=== PATIENT | male | born 1960 | race Caucasian/White ===

== ENCOUNTER → 2020-06-09 09:47 | Outpatient (CLI) | payer OTHER, BC, SELFPAY ==
--- NOTE | ~2020-06-09 | MR_ITS ---
EXAMINATION: MR lumbar spine wo [facility] EXAM DATE: 06/09/2020 10:38 INDICATION: Low back pain. Left hip pain, left leg numbness. TECHNIQUE: Multi-sequential, multiplanar MR images of the lumbar spine were obtained without contrast . Sagittal T1, T2, T2 fat saturation images. Axial T2 weighted images. There is no prior study for comparison. FINDINGS: There is moderate to severe disc disease L2-L5, moderate at L5-S1. The L1 and L2 vertebral bodies are fused with mild kyphosis. There is 4 mm retrolisthesis L2 on L3, 2 mm anterolisthesis L3 o n L4, 2 mm retrolisthesis L4 on L5, 5 mm retrolisthesis L5 on S1. Moderate loss of the lower thoracic disc height. The conus medullaris terminates at the L1/2 level and has normal signal intensity and m orphology. Paraspinal soft tissue is unremarkable. Level by level evaluation: T12-L1: There is a mild diffuse disc bulge. Facet arthropathy: Mild. Neural foraminal stenosis: No stenosis. Central canal stenosis: No stenosis. L1-L2: There is osseous fusion of these vertebral bodies. Posterior aspect does bulge into spinal can al. Facet arthropathy: Moderate. Neural foraminal stenosis: Mild to moderate right, mild left. Central canal stenosis: Mild. L2-L3: There is a moderate to large diffuse disc bulge, small superimposed left central extrusion azeem rowing lateral recess. Facet arthropathy: Moderate to severe . Ligamentum flavum enlargement. Neural foraminal stenosis: Moderate left, mild to moderate right. Central canal stenosis: Mild to moderate overall, but particularly left lateral recess. L3-L4: There is a moderate to large diffuse disc bulge. Facet arthropathy: Severe . Ligamentum flavum enlargement. Neural foraminal stenosis: Moderate bilateral. Central canal stenosis: Severe. L4-L5: There is a moderate to large diffuse disc bulge. Facet arthropathy: Moderate . Ligamentum flavum enlargement . Neural foraminal stenosis: Moderate to severe bilateral. Central canal stenosis: Moderate to severe. L5-S1: There is a mild to moderate diffuse disc bulge. Facet arthropathy: Moderate. Neural foraminal stenosis: Moderate to severe bilateral, but less than level above. Central canal stenosis: Moderate. IMPRESSION: Advanced lumbar spondylosis with L4-5 neural foramen most narrowed and L3-4 central canal most narrowed. Reviewed, dictated and finalized at location A.
== END ==
PROVIDERS: PCP Internal Medicine; Visit Provider Internal Medicine
DX: M47.815 Spondylosis without myelopathy or radiculopathy, thoracolumbar region (principal); M48.05 Spinal stenosis, thoracolumbar region; M47.817 Spondylosis without myelopathy or radiculopathy, lumbosacral region; M48.07 Spinal stenosis, lumbosacral region
CPT/HCPCS: 72148

== ENCOUNTER → 2020-09-24 08:38 | Outpatient (CLI) | payer OTHER, BC, SELFPAY ==
--- NOTE | ~2020-09-24 | XR_ITS ---
EXAMINATION: XR chest 2V EXAM DATE: 09/24/2020 09:17 INDICATION: Preoperative. Spinal stenosis, radiculopathy. TECHNIQUE: Frontal and lateral projections of the chest obtained and reviewed. Comparison is made to prior examination from 03/17/2017. FINDINGS: The lungs are hyperinflated which can be seen with chronic obstructive pulmonary disease ( a clinical diagnosis of functional impairment), but is not diagnostic of it. The lungs are clear. Th ere are no pleural effusions. The cardiomediastinal silhouette is within normal limits. There is no pneumothorax suspected. The bones and soft tissues are unremarkable. IMPRESSION: 1. No acute cardiopulmonary findings. 2. Hyperinflation. Reviewed, dictated and finalized at location B.
== END ==
PROVIDERS: Visit Provider Neurological Surgery
DX: M54.17 Radiculopathy, lumbosacral region (principal); M48.07 Spinal stenosis, lumbosacral region; M54.16 Radiculopathy, lumbar region; R91.8 Other nonspecific abnormal finding of lung field
CPT/HCPCS: 71046

== ENCOUNTER 2020-09-24 09:38 | Outpatient (CLI) | payer OTHER, BC, SELFPAY ==
--- NOTE | 2020-09-24 | ECG_ITS ---
Measurements Intervals [place] Rate: 65 P: 81 [place]: 171 QRS: 70 QRSD: 86 T: 61 QT: 389 QTc: 405 Interpretive Statements SINUS RHYTHM NORMAL ECG Electronically Signed On 09-24-2020 10:11:19 CDT by Adalberto Brumfield D.O.
== END 2020-09-24 09:39 | disposition home or self-care (01) ==
LOC: ANHCARD 09:42
PROVIDERS: Visit Provider Neurological Surgery
DX: M54.17 Radiculopathy, lumbosacral region (principal); M48.07 Spinal stenosis, lumbosacral region; M54.16 Radiculopathy, lumbar region
CPT/HCPCS: 93005

== ENCOUNTER 2020-12-19 08:56 | Outpatient (CLI) | payer OTHER, BC, SELFPAY ==
--- NOTE | ~2020-12-19 | MR_ITS ---
EXAMINATION: MR lumbar spine wo con DATE: 12/19/2020 09:46 INDICATION: Spinal stenosis. TECHNIQUE: Magnetic resonance imaging (MRI) of the lumbar spine was performed without intravenous con trast. Sequences included sagittal T2-weighted FSE, sagittal T2-weighted FS FSE, sagittal T1-weighted FSE, and axial T2-weighted FSE. COMPARISON: Lumbar spine MRI 06/09/2020 FINDINGS: There is 6 degrees levocurvature of lumbar spine. There is 3 mm retrolisthesis of L1 on L2 and L2 and L3, 3 mm retrolisthesis of L3 on L4, and 3 mm retrolisthesis of L4 on L5 and L5 on S1. The re is mild chronic anterior wedging of T12 vertebral body. There is interbody fusion at L1-L2 with mi ld focal kyphosis. There is severely decreased disc height from L2-L3 through L5-S1 with endplate rem odeling. The distal spinal cord signal intensity is normal. The conus medullaris is at L1-L2. The fol lowing disc levels are specifically discussed: L1-L2: There is moderate bilateral facet joint osteoarthritis. There is moderate right and mild left neural foraminal stenosis. There is mild central canal stenosis. L2-L3: The disc is bulging and has an annular fissure. There is severe bilateral facet joint osteoart hritis. There is mild right and moderate left neural foraminal stenosis. There is mild central canal stenosis with posterior decompression. L3-L4: The disc is bulging and has an annular fissure. There is severe bilateral facet joint osteoart hritis. There is moderate bilateral neural foraminal stenosis. There is mild central canal stenosis w ith posterior decompression. L4-L5: The disc is bulging and has an annular fissure. There is severe bilateral facet joint osteoart hritis. There is moderate bilateral neural foraminal stenosis. There is mild central canal stenosis w ith posterior decompression. L5-S1: The disc is bulging and has an annular fissure. There is severe bilateral facet joint osteoart hritis. There is moderate bilateral neural foraminal stenosis. There is mild central canal stenosis w ith posterior decompression. IMPRESSION: 1. Severe lumbar spondylosis with improvement in central canal stenosis from 06/09/2020. Reviewed, dictated and finalized at location A. IMPRESSION: 1. Severe lumbar spondylosis with improvement in central canal stenosis from .
== END 2020-12-19 08:57 | disposition home or self-care (01) ==
LOC: ANHIMG 08:58
PROVIDERS: PCP Internal Medicine; Visit Provider Neurological Surgery
DX: M48.07 Spinal stenosis, lumbosacral region (principal); G90.09 Other idiopathic peripheral autonomic neuropathy; M47.26 Other spondylosis with radiculopathy, lumbar region
CPT/HCPCS: 72148

== ENCOUNTER 2020-12-24 14:33 | Outpatient (CLI) | payer OTHER, BC, SELFPAY ==
--- NOTE | ~2020-12-24 | MR_ITS ---
EXAMINATION: MR cervical spine wo con DATE: 12/24/2020 16:12 INDICATION: Cervical radiculopathy. TECHNIQUE: Magnetic resonance imaging (MRI) of the cervical spine was performed without intravenous c ontrast. Sequences included sagittal T2-weighted FSE, sagittal T2-weighted FS FSE, sagittal T1-weight ed FSE, axial MERGE, and axial T2-weighted FSE. COMPARISON: None FINDINGS: There is 2 mm retrolisthesis of C5 on C6. There is 2 mm anterolisthesis of C3 on C4. Verteb ral body heights are normal. There is moderately decreased disc height at C5-C6. The spinal cord sign al intensity is normal. The following disc levels are specifically discussed: C2-C3: The disc does not extend beyond the endplate margin. There is mild left uncovertebral joint os teoarthritis. There is severe left facet joint osteoarthritis. There is moderate left neural foramina l stenosis. There is no central canal stenosis. C3-C4: The disc is bulging. There is severe right and moderate left uncovertebral joint osteoarthriti s. There is severe bilateral facet joint osteoarthritis. There is moderate bilateral neural foraminal stenosis. There is mild central canal stenosis. C4-C5: The disc is bulging. There is mild bilateral uncovertebral joint osteoarthritis. There is mode rate bilateral facet joint osteoarthritis. There is mild bilateral neural foraminal stenosis. There i s mild central canal stenosis. C5-C6: The disc is bulging. There is severe bilateral uncovertebral joint osteoarthritis. There is no facet joint osteoarthritis. There is moderate bilateral neural foraminal stenosis. There is moderate central canal stenosis with ventral and dorsal indentation of the spinal cord. C6-C7: The disc is bulging. There is no uncovertebral joint osteoarthritis. There is moderate bilater al facet joint osteoarthritis. There is mild bilateral neural foraminal stenosis. There is mild centr al canal stenosis. C7-T1: The disc does not extend beyond the endplate margin. There is no uncovertebral joint osteoarth ritis. There is moderate and severe left facet joint osteoarthritis. There is mild bilateral neural f oraminal stenosis. There is no central canal stenosis. IMPRESSION: 1. Moderate cervical spondylosis. Reviewed, dictated and finalized at location A.
== END 2020-12-24 14:34 | disposition home or self-care (01) ==
PROVIDERS: PCP Internal Medicine; Visit Provider Neurological Surgery
DX: M47.22 Other spondylosis with radiculopathy, cervical region (principal)
CPT/HCPCS: 72141

== ENCOUNTER 2021-07-03 08:22 | Outpatient (CLI) | payer OTHER, BC, SELFPAY ==
--- NOTE | ~2021-07-03 | MR_ITS ---
EXAMINATION: MR cervical spine wo con DATE: 07/03/2021 09:15 INDICATION: Cervical radiculopathy. TECHNIQUE: Magnetic resonance imaging (MRI) of the cervical spine was performed without intravenous c ontrast. Sequences included sagittal T2-weighted FSE, sagittal T2-weighted FS FSE, sagittal T1-weight ed FSE, axial MERGE, and axial T2-weighted FSE. COMPARISON: Cervical spine MRI 12/24/2020 FINDINGS: There is 2 mm anterolisthesis of C3 on C4 and 2 mm retrolisthesis of C5 on C6. Vertebral danny dy heights are normal. There is moderately decreased disc height at the C5-C6 with endplate remodelin g. The spinal cord signal intensity is normal. The following disc levels are specifically discussed: C2-C3: The disc does not extend beyond the endplate margin. There is mild left uncovertebral joint os teoarthritis. There is mild right and severe left facet joint osteoarthritis. There is mild left neur al foraminal stenosis. There is no central canal stenosis. C3-C4: The disc is bulging. There is severe right and moderate left uncovertebral joint osteoarthriti s. There is severe bilateral facet joint osteoarthritis. There is moderate bilateral neural foraminal stenosis. There is mild central canal stenosis. C4-C5: There is a central protrusion. There is no uncovertebral joint osteoarthritis. There is modera te bilateral facet joint osteoarthritis. There is no neural foraminal stenosis. There is mild central canal stenosis. C5-C6: The disc is bulging. There is severe bilateral uncovertebral joint osteoarthritis. There is mi ld bilateral facet joint osteoarthritis. There is severe right and moderate left neural foraminal nadia nosis. There is mild central canal stenosis. C6-C7: There is a left central protrusion. There is mild left uncovertebral joint osteoarthritis. The re is moderate right and mild left facet joint osteoarthritis. There is no neural foraminal stenosis. There is mild central canal stenosis. C7-T1: The disc does not extend beyond the endplate margin. There is no uncovertebral joint osteoarth ritis. There is severe bilateral facet joint osteoarthritis. There is mild bilateral neural foraminal stenosis. There is no central canal stenosis. IMPRESSION: 1. Moderate cervical spondylosis, stable from 12/24/2020. Reviewed, dictated and finalized at location A.
== END 2021-07-03 08:23 | disposition home or self-care (01) ==
LOC: ANHIMG 08:25
PROVIDERS: PCP Internal Medicine; Visit Provider Neurological Surgery
DX: G90.09 Other idiopathic peripheral autonomic neuropathy (principal); M47.892 Other spondylosis, cervical region
CPT/HCPCS: 72141

== ENCOUNTER 2021-07-12 09:14 | Outpatient (CLI) | payer OTHER, BC, SELFPAY ==
--- NOTE | 2021-07-12 | ECG_ITS ---
Measurements Intervals [place] Rate: 58 P: 88 [place]: 203 QRS: 74 QRSD: 74 T: 73 QT: 414 QTc: 408 Interpretive Statements SINUS BRADYCARDIA OTHERWISE NORMAL ECG COMPARED TO ECG 09/24/2020 10:06:40 SINUS BRADYCARDIA NOW PRESENT Electronically Signed On 07-12-2021 16:23:15 CDT by Barry Cunningham M.D.
--- NOTE | ~2021-07-12 | XR_ITS ---
XR chest 2V DATE: 07/12/2021 09:34 INDICATION: Spinal stenosis TECHNIQUE: PA and lateral views COMPARISON: 09/24/2020 2 view chest FINDINGS: Normal heart size. No hilar or mediastinal enlargement. No hilar or mediastinal enlargeme nt. Bilateral hyperinflation. No pulmonary infiltrate or consolidation, pulmonary vascular congestion or pleural effusion or pneumothorax. IMPRESSION: Bilateral hyperinflation; no active cardiopulmonary disease Reviewed, dictated and finalized at location A.
[2021-07-12 09:49] LABS: Basophils Absolute Auto 0.1 K/mm3 (0.0-0.1); Basophils Percent Auto 0.8 % (0.2-1.2); Eosinophils Absolute Auto 0.2 K/mm3 (0-0.3); Eosinophils Percent Auto 3.2 % (0-4.4); Hematocrit 48.1 % (42.0-52.0); Hemoglobin 15.7 g/dL (14.0-18.0); Immature Granulocyte Absolute 0.01 K/mm3 (0.00-0.031); Immature Granulocyte Percent A 0.2 % (0-0.5); Lymphocytes Absolute Auto 1.61 K/mm3 (0.9-3.2); Mean Corpuscular HGB Conc 32.6 g/dl (32-36); Mean Corpuscular Hemoglobin 30.8 pg (26-34); Mean Corpuscular Volume 94.3 fl (80-100); Mean Platelet Volume 9.5 fl (7.4-10.4); Monocytes Absolute Auto 0.6 K/mm3 (0.1-0.6); Neutrophils Absolute Auto 3.8 K/mm3 (1.3-6.7); Neutrophils Percent Auto 60.8 % (45.5-73.1); Platelet Count Result 214 k/mm3 (150-375); Red Cell Distribution Width 13.2 % (11.5-14.5); White Blood Count 6.2 K/mm3 (4.5-10.0)
[2021-07-12 10:00] LABS: Anion Gap 2 mmol/L (8-16); Blood Urea Nitrogen 16 mg/dL (9-20); Calcium 8.5 mg/dL (8.4-10.2); Carbon Dioxide 31 mmol/L (22-30); Chloride 106 mmol/L (98-107); Estimated Glomerular Filt Rate > 60; Glucose 108 mg/dL (65-110); Potassium 4.1 mmol/L (3.4-5.0); Sodium 139 mmol/L (137-145)
[2021-07-12 10:01] LABS: Partial Thromboplastin Time 28.6 SECONDS (22.3-36.8); Prothrombin Time 12.7 Seconds (11.1-14.7)
== END 2021-07-12 09:15 | disposition home or self-care (01) ==
LOC: ANHIMG 09:19
PROVIDERS: PCP Internal Medicine; Visit Provider Neurological Surgery
DX: M54.17 Radiculopathy, lumbosacral region (principal); M48.07 Spinal stenosis, lumbosacral region; M54.12 Radiculopathy, cervical region; G90.09 Other idiopathic peripheral autonomic neuropathy; M50.222 Other cervical disc displacement at C5-C6 level; M47.12 Other spondylosis with myelopathy, cervical region
CPT/HCPCS: 36415; 71046; 80048; 85025; 85610; 85730; 93005

== ENCOUNTER 2021-10-28 08:08 | Outpatient (CLI) | payer OTHER, BC, SELFPAY ==
--- NOTE | ~2021-10-28 | XR_ITS ---
XR_CERV2-3V_CR DATE: 10/28/2021 08:52 INDICATION: Surgery 41 days ago. Cervical disc displacement at C5-6. TECHNIQUE: AP, lateral, open-mouth views COMPARISON: 07/03/2021 MR cervical spine FINDINGS: C1 and C2 are normally aligned and the odontoid process is intact. Intervertebral disc spacer device at C5-6. There is mild retrolisthesis at C5-6. Cervical interspaces are otherwise well preserved. No fracture or dislocation or locked facet or prevertebral soft tissue swelling is detected. IMPRESSION: Disc space device and mild retrolisthesis at C5-6 Reviewed, dictated and finalized at Location A. Reviewed, dictated and finalized at location B.
== END 2021-10-28 08:09 | disposition home or self-care (01) ==
LOC: ANHIMG 08:18
PROVIDERS: PCP Internal Medicine; Visit Provider Neurological Surgery
DX: M50.20 Other cervical disc displacement, unspecified cervical region (principal)
CPT/HCPCS: 72040

== ENCOUNTER 2022-09-26 16:17 | Outpatient (CLI) | payer OTHER, BC, SELFPAY ==
--- NOTE | ~2022-09-26 | CT_ITS ---
EXAMINATION:CT diagnostic chest wo con DATE: 09/26/2022 16:36 INDICATION: Chest pain. TECHNIQUE: Computed tomography (CT) of the chest was performed without intravenous contrast. Automate d exposure control and iterative reconstruction technique were employed. The dose-length product (DLP ) was 228.10 mGy-cm. COMPARISON: Chest 2 views 07/12/2021 FINDINGS: There is mild scarring at the lung apices. There are tree-in-bud opacities and centrilobula r nodules in the lower lobes and lingula, consistent with pneumonia. There is mild bronchiectasis in the inferior lungs. No pleural effusion. The heart size is normal. No pericardial effusion. There is a small sliding hiatal hernia. There is a 10 mm cyst in the liver. There is severe thoracic spondylos is. IMPRESSION: 1. Bilateral pneumonia. 2. Mild bronchiectasis in the inferior lungs. 3. Small sliding hiatal hernia. Reviewed, dictated and finalized at location E.
== END 2022-09-26 16:18 | disposition home or self-care (01) ==
LOC: ANHIMG 16:18
PROVIDERS: PCP Internal Medicine; Visit Provider Internal Medicine
DX: J18.9 Pneumonia, unspecified organism (principal); K44.9 Diaphragmatic hernia without obstruction or gangrene
CPT/HCPCS: 71250

== ENCOUNTER 2023-06-17 19:08 | Emergency (ER) | payer OTHER, BC, SELFPAY ==
--- NOTE | ~2023-06-17 | XR_ITS ---
XR chest 1V portable DATE: 06/18/2023 00:49 INDICATION: Cough, difficulty breathing TECHNIQUE: Portable AP chest radiographs on at 0040 at 0041 hours COMPARISON: 09/26/2022 CT chest 07/12/2021 2 view chest FINDINGS: Bilateral hyperinflation. No pulmonary infiltrate or consolidation, pleural effusion or pul monary vascular congestion or pneumothorax. Normal heart size. No hilar or mediastinal enlargement. IMPRESSION: Bilateral hyperinflation; no active cardiopulmonary disease Reviewed, dictated and finalized at location A.
[2023-06-17 19:11] VITALS: BP 149/88; PULSE 78; RESP 18; TEMP 36.8; O2SAT 100
--- NOTE | 2023-06-17 19:24 | ECG_ITS ---
Measurements Intervals [place] Rate: 72 P: 84 [place]: [id number] QRS: 76 QRSD: 86 T: 68 QT: 383 QTc: 422 Interpretive Statements SINUS RHYTHM POSSIBLE LEFT ATRIAL ENLARGEMENT BORDERLINE ECG COMPARED TO ECG 07/12/2021 10:08:50 SINUS RHYTHM NOW PRESENT Electronically Signed On 06-17-2023 21:12:19 CDT by Adalberto Brumfield D.O.
[2023-06-17 20:06] LABS: Basophils Percent Auto 0.4 % (0.2-1.2); Eosinophils Absolute Auto 0.1 K/mm3 (0-0.3); Eosinophils Percent Auto 1.1 % (0-4.4); Hematocrit 51.5 % (42.0-52.0); Hemoglobin 17.3 g/dL (14.0-18.0); Immature Granulocyte Absolute 0.03 K/mm3 (0.00-0.031); Immature Granulocyte Percent A 0.4 % (0-0.5); Lymphocytes Absolute Auto 0.48 K/mm3 (0.9-3.2); Lymphocytes Percent Auto 5.8 % (18.3-44.2); Mean Corpuscular HGB Conc 33.6 g/dl (32-36); Mean Corpuscular Hemoglobin 32.1 pg (26-34); Mean Corpuscular Volume 95.5 fl (80-100); Mean Platelet Volume 9.7 fl (7.4-10.4); Monocytes Absolute Auto 0.5 K/mm3 (0.1-0.6); Monocytes Percent Auto 6.4 % (2.6-8.5); Neutrophils Absolute Auto 7.1 K/mm3 (1.3-6.7); Neutrophils Percent Auto 85.9 % (45.5-73.1); Platelet Count Result 178 k/mm3 (150-375); Red Blood Count 5.39 M/mm3 (4.6-6.20); Red Cell Distribution Width 12.9 % (11.5-14.5); White Blood Count 8.3 K/mm3 (4.5-10.0)
[2023-06-17 20:15] LABS: Alanine Aminotransferase 29 U/L (6-50); Albumin Level 4.4 g/dL (3.5-5.1); Alkaline Phosphatase 94 U/L (38-126); Anion Gap 5 mmol/L (4-12); Aspartate Amino Transferase 31 U/L (17-59); Bilirubin,Total 0.7 mg/dL (0.2-1.3); Blood Urea Nitrogen 16 mg/dL (9-20); Calcium 9.8 mg/dL (8.4-10.2); Carbon Dioxide 29 mmol/L (22-30); Chloride 104 mmol/L (98-107); Estimated CRCL calculation 74 ml/min; Estimated Glomerular Filt Rate > 60; Glucose 117 mg/dL (65-110); Potassium 4.3 mmol/L (3.4-5.0); Sodium 138 mmol/L (137-145)
[2023-06-18] VITALS (15 sets, daily range): BP systolic 129–150; BP diastolic 81–98; PULSE 69–85; RESP 14–21; TEMP 36.4; O2SAT 95–100
--- NOTE | 2023-06-18 00:18 | ED.GENADULT ---
HPI - General Adult General Chief complaint: Nausea/Vomiting/Diarrhea Stated complaint: lungs are bad Time Seen by Provider: 06/18/23 00:15 Source: patient Mode of arrival: ambulatory Limitations: no limitations History of Present Illness HPI narrative: 63-year-old male presents with acute onset vomiting and cough. He has had multiple episodes of emesis. No diarrhea. His last bowel movement was 7 hours ago and reportedly normal. He has had a cough in status that his lungs are bad/ heavy. Patient states he had a fever today but when asked he states the temperature was 98? F. yesterday he was in his baseline state of health and went to [address] [place] [id number]. Today he felt weak and dizzy. Chest felt tight after coughing. 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 Two weeks ago he had an echo which he states he was told was the same as previous from the year before. Patient states he was supposed to undergo cardiac catheterization this Monday for bradycardia (reports that his heart rate was 54-58) as recommended by his PCP Dr Aracelis Leonard but that insurance wouldn't cover it so it is currently canceled/paused. Related Data Allergies Allergy/AdvReac Type Severity Reaction Status Date / Time No Known Allergies Allergy Unverified 03/17[facility]18 08:49 [facility] Past Medical History Medical History (Updated 06/19/23 @ 11:06 by Veronica Sharp MD) Pneumonia bilateral lungs, 2022; not resistant to antibiotics Surgical History Surgical History (Updated 06/19/23 @ 11:07 by Veronica Sharp MD) History of back surgery x4 Family History Family History (Updated 06/19/23 @ 11:04 by Veronica Sharp MD) Mother Leukemia Sibling Leukemia Sibling Leukemia Sibling Leukemia Exam Narrative: GENERAL: Well-appearing, well-nourished, and in no acute distress. HEAD: Normocephalic, atraumatic. EYES: Non injected, non icteric ENT: Nares clear, no rhinorrhea or epistaxis. NECK: Supple. CHEST: Clear to auscultation. No respiratory distress. Speaking in complete sentences. HEART: Regular rate and rhythm. ABDOMEN: Soft, nondistended. EXTREMITIES: Normal range of motion. No edema. SKIN: Warm, dry, no rash. NEURO: No focal deficits. Alert and oriented x3. PSYCH: Normal mood and affect. Course Vital Signs Vital signs: Vital Signs Temperature 98.3 F 06/17/23 19:11 Pulse Rate 78 06/17/23 19:11 Respiratory Rate 18 06/17/23 19:11 Blood Pressure 149/88 H 06/17/23 19:11 Pulse Oximetry 100 06/17/23 19:11 Temperature 97.5 F L 06/18/23 00:21 Pulse Rate 69 06/18/23 01:45 Respiratory Rate 19 06/18/23 01:45 Blood Pressure 130/82 06/18/23 01:32 Pulse Oximetry 97 06/18/23 01:45 Medical Decision Making MDM Narrative Medical decision making narrative: Patient presents with acute onset multiple episodes of vomiting and a cough. He also reports subjective fever states that he had a recorded fever at home but when asked he says the temperature was 98? F. Yesterday was in his baseline state and was at [facility]. In the emergency department he is afebrile with acceptable vital signs. His symptoms sound consistent with an acute viral process. Viral swabs are negative but it is possible he is exhibiting signs before testing positive. Discussed rest and supportive care and patient does state he is already feeling better. Patient was given ER return precautions verifies understanding. Discharged stable condition. Differential Diagnosis Differential Diagnosis: acute viral syndrome, pneumonia Vital Signs Vital Signs: Vital Signs Temperature 98.3 F 06/17/23 19:11 Pulse Rate 78 06/17/23 19:11 Respiratory Rate 18 06/17/23 19:11 Blood Pressure 149/88 H 06/17/23 19:11 Pulse Oximetry 100 06/17/23 19:11 Temperature 97.5 F L 06/18/23 00:21 Pul
[2023-06-18 01:11] LABS: Influenza A QL RT-PCR Negative (Negative); Influenza B QL RT-PCR Negative (Negative); RSV RNA, RT-PCR Negative (Negative); SARS-CoV-2 RNA PCR Negative (Negative)
[2023-06-18] MEDS: ONDANSETRON HCL ODT 4 MG TABLET PO (01:27)
[2023-06-18] MEDS: ACETAMINOPHEN 500 MG TABLET 1000 MG PO (01:27)
[2023-06-18] MEDS: KETOROLAC 30 MG/ML VIAL (*BKC) 15 MG IM (01:27)
== END 2023-06-18 02:21 | disposition home or self-care (01) ==
PROVIDERS: Emergency Provider Student in an Organized Health Care Education/Training Program; PCP Internal Medicine
DX: R11.10 Vomiting, unspecified (principal); R05.9 Cough, unspecified; Z20.822 Contact with and (suspected) exposure to COVID-19
CPT/HCPCS: 36415; 71045; 80053; 85025; 87637; 93005; 96372; 99284; A9270; J1885

== ENCOUNTER 2023-07-08 08:31 | Outpatient (CLI) | payer OTHER, BC, SELFPAY ==
--- NOTE | ~2023-07-08 | XR_ITS ---
XR cervical spine 4-5V 07/08/2023 11:23 Indication: Cervicalgia Procedure: 5 views cervical spine including flexion/extension views Comparison: 10/28/2021 Findings: There is a prosthetic disc device at C5-6. There is moderate multilevel facet hypertrophy. There is degenerative retrolisthesis at C5-6, unchanged. No prevertebral soft tissue swelling. No sig nificant alteration of alignment with flexion/extension. Odontoid process is normal. Impression: 1: Stable moderate cervical spondylosis with prosthetic disc device at C5-6. Reviewed, dictated and finalized at location A. Impression: 1: Stable moderate cervical spondylosis with prosthetic disc device at C5-6.
== END 2023-07-08 08:32 ==
PROVIDERS: PCP Neurological Surgery; Visit Provider Neurological Surgery
DX: M50.222 Other cervical disc displacement at C5-C6 level (principal); M47.12 Other spondylosis with myelopathy, cervical region
CPT/HCPCS: 72050